=== PATIENT | female | born 1935 | race Caucasian/White ===

== ENCOUNTER 2018-05-27 07:23 | Day surgery (SDC) | payer OTHER ==
[~2018-05-27] VITALS: Ht 157.5 cm; Wt 76.5 kg
[~2018-05-27 07:23] MED LIST: CALTRATE-600 W1 EAC1 PO; COZAAR50 MG PO; GAS-X125 MG PO; LIPITOR80 MG PO; OMEPRAZOLE40 M1 PO; PRILOSEC20 MG PO; TOPROL XL50 MG PO; TRAMADOL HCL50 MG PO; TRAZODONE HCL50 MG PO
[2018-05-27] MEDS ORDERED: ASPIR 8181 M1 PO (08:04)
[2018-05-27 19:30] VITALS: BP 97/52
[2018-05-28] VITALS (7 sets, daily range): BP systolic 103–137; BP diastolic 53–63
[2018-05-28 06:02] LABS: BASOPHIL (%) 0.3 % (0-1); EOSINOPHIL (%) 1.6 % (0-5); EOSINOPHIL COUNT 0.1 K/uL (0-0.3); HEMATOCRIT 33.8 % (36.0-46.0); IMMATURE GRANULOCYTE (%) 0.1 % (0.0-0.7); LYMPHOCYTE (%) 20.2 % (15-42); LYMPHOCYTE COUNT 1.4 K/uL (1.0-2.8); MCH 31.1 PG (29.0-34.0); MCHC 32.8 G/DL (30.0-36.0); MCV 94.7 FL (83-99); MONOCYTE (%) 8.3 % (3-12); MONOCYTE COUNT 0.6 K/uL (0-0.8); NEUTROPHIL (%) 69.5 % (45-76); NEUTROPHIL COUNT 4.7 K/uL (1.8-6.4); RBC DIS.WIDTH-CV 12.3 % (11.8-14.6); WHITE BLOOD COUNT 6.7 K/uL (4.1-10.2)
[2018-05-28 06:09] LABS: HEMOGLOBIN 11.1 G/DL (11.9-15.5); PLATELET COUNT 165 K/uL (156-360); RED BLOOD COUNT 3.57 M/uL (3.80-5.20)
[2018-05-28 06:17] LABS: CHLORIDE 109 MEQ/L (99-109); CREATININE 0.7 MG/DL (0.6-1.3); GFR ESTIMATE (CALCULATED) > 59 mL/min/; GLUCOSE 96 mg/dL (70-99); POTASSIUM 4.1 MEQ/L (3.7-5.4); SODIUM 141 MEQ/L (136-147); UREA NITROGEN (BUN) 13 mg/dL (9-23)
[2018-05-28] MEDS ORDERED: LOPRESSOR25 MG PO (10:45)
[2018-05-28] MEDS ORDERED: ASPIR-LOW81 MG PO (10:45)
[2018-05-28] MEDS ORDERED: PRAVACHOL20 MG PO (10:45)
[2018-05-28] MEDS ORDERED: PANTOPRAZOLE SO40 MG PO (10:45)
== END 2018-05-28 14:13 | disposition home or self-care (01) ==
LOC: CATH 07:23 → ENRESERV 12:42 → 2SOUTH 12:57 → 4EAST 12:57 → 2SOUTH 12:57 → CANRESERV 18:06 → ENRESERV 18:06 → CANRESERV 18:12 → ENRESERV 18:12 → CANRESERV 19:01 → ENRESERV 19:09 → 4EAST 19:14
PROVIDERS: Internal Medicine Interventional Cardiology
DX: I25.10 Atherosclerotic heart disease of native coronary artery without angina pectoris (principal); I10 Essential (primary) hypertension; E78.5 Hyperlipidemia, unspecified; R00.2 Palpitations
CPT/HCPCS: 80048; 85025; 85347; 93005; C1725; C1769; C1874; C1887; C1894; G0378; J0360; J0461; J1644; J2250; J2405; J3010; J7030